=== PATIENT | female | born 1995 | race Asian ===

== ENCOUNTER 2018-07-26 11:50 | Emergency (ER) | payer OTHER ==
--- NOTE | 2018-07-26 12:12 | EDPHY ---
H & P Time Seen by Provider: 07/26/18 12:00 HPI/ROS: CHIEF COMPLAINT: "I think my toe is broken" HISTORY OF PRESENT ILLNESS: 23-year-old female was in [facility] [place] 3 days ago, slipped and and impacted her right 5th toe. Complaining of pain to the 5th toe at the 5th MTP. Able to bear weight albeit with pain. Intact skin. PHYSICAL EXAM (Prior to examination, patient consented to physical exam, hands were washed and my usual and customary physical exam procedures followed) 1) GENERAL: Well-developed, well-nourished, alert and oriented. Appears to be in no acute distress. 2) HEAD: Normocephalic 3) HEENT: Pupils equal, round, reactive to light bilaterally. 4) LUNGS: Breathing comfortably. 5) MUSCULOSKELETAL: Tender to palpation right 5th MTP. No deformity no angulation no shortening. Otherwise the foot is nontender. Soft compartments throughout. 6) SKIN: Intact 7) VASCULAR: DP,PT pulses and cap refill present and brisk DIFFERENTIAL DIAGNOSIS: in no particular order including but not limited to fracture, sprain, compartment syndrome Procedure: Splint A postop shoe julianne-tape splint was applied by ER voip technician. After application of the splint I returned and re-examined the patient. The splint was adequately immobilizing the joint and distal to the splint the patient's circulation and sensation were intact. Patient shows no signs of compartment syndrome. Was given orthopedic precautions. Smoking Status: Never smoked Constitutional: Initial Vital Signs Temperature (C) 36.4 C 07/26/18 11:56 Heart Rate 74 07/26/18 11:56 Respiratory Rate 18 07/26/18 11:56 Blood Pressure 117/85 H 07/26/18 11:56 O2 Sat (%) 97 07/26/18 11:56 O2 Delivery Mode Room Air Allergies/Adverse Reactions: No Known Allergies Allergy (Unverified 07/26/18 11:55) Home Medications: Medication Instructions Recorded Gabapentin 07/26/18 Humalog 07/26/18 Liletta 07/26/18 Vilazodone HCl 07/26/18 MDM/Departure - MDM Imaging Results: Imaging Impressions Foot X-Ray 07/26/18 12:00 Impression: Nondisplaced fracture involving the shaft of the fifth toe proximal phalanx. Images reviewed myself - Depart Disposition: Home, Routine, Self-Care Clinical Impression: Toe fracture, right Qualifiers: Encounter type: initial encounter Toe: lesser toe Fracture type: closed Phalanx : proximal Fracture alignment: nondisplaced Qualified Code(s): S92.514A - Nondisplaced fracture of proximal phalanx of right lesser toe(s), initial encounter for closed fracture Condition: Good Instructions: Toe Fracture (ED) Additional Instructions: Return to the ER immediately if you experience discoloration, have worsening pain, numbness, tingling, or any other symptoms that concern you. If you received x-rays in the emergency department today, be advised, that ligamentous , tendon, muscular, and other non-bony injury cannot be fully ruled out. Try to keep your affected extremity elevated above the level of your chest, and keep cold packs on the affected area, for the next 48 hours. Adult Pain & Fever Control: We recommend Acetaminophen (Tylenol) and Ibuprofen (Motrin,Advil) for pain and fever control. When fever is high or pain severe, both drugs can be used at the same time, but at different intervals. Please note the time differences. Your dose is: Acetaminophen 650mg every 4 to 6 hours Ibuprofen 600mg every 6 hours with food OR Note: do not take Acetaminophen with Hydrocodone (Vicodin, Lortab) or Oycodone (Percocet). These medications also contain Acetaminophen. No more than 3000mg of Acetaminophen should be taken in 24 hours (for an adult). Referrals: Zachery Wheeler DPM [Doctor of Podiatric Medicine] - 5-7 days, call for appt.
[2018-07-26 12:39] VITALS: BP 114/78
== END 2018-07-26 12:50 | disposition home or self-care (01) ==
DX: S92.514A Nondisplaced fracture of proximal phalanx of right lesser toe(s), initial encounter for closed fracture (principal); W22.8XXA Striking against or struck by other objects, initial encounter; Y92.9 Unspecified place or not applicable; Y93.9 Activity, unspecified; Y99.9 Unspecified external cause status
CPT/HCPCS: L4386